=== PATIENT | male | born 1955 | race Caucasian/White ===

== ENCOUNTER 2018-12-20 18:14 | Emergency (ER) | payer BC ==
[2018-12-20] MEDS ORDERED: methylPREDNISolone Sodium Succinate 125 MG/2 ML SDV IM SCH (18:30)
--- NOTE | 2018-12-20 18:53 | EDM.PDOC ---
ED HPI GENERAL MEDICAL PROBLEM - General Chief Complaint: Allergic Reaction Stated Complaint: "Got stung by a bee" Time Seen by Provider: 12/20/18 18:18 Source of Information: Reports: Patient History Limitations: Reports: No Limitations - History of Present Illness INITIAL COMMENTS - FREE TEXT/NARRATIVE: Eloisa is a 63 yo male who presents to the ED with concerns of a bee sting. 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 States he knows he is allergic to them and does have an EpiPen for it. States he unloaded his truck which took about 15 minutes then was able to get his EpiPen and use it. States he immediately grabbed the bee and doesn't think there is any retained stinger in his right ear lob. Denies having any shortness of breath. States he does have some swelling to the ear lobe and did feel itchy on his arms afterwards. States this has happened twice in the past and he would come in and get a shot and never had any further symptoms afterwards. Onset: Today Onset Date: 12/20/18 Onset Time: 17:05 Duration: Improving Quality: Reports: Same as Previous Episode Past Medical History Cardiovascular History: Reports: CAD, High Cholesterol, Hypertension Social & Family History - Tobacco Use Smoking Status *Q: Never Smoker - Alcohol Use Alcohol Use History: Yes Alcohol Use Frequency: Socially - Recreational Drug Use Recreational Drug Use: No - Sexual History Sexual History: Reports: Single Partner - Living Situation & Occupation Living situation: Reports: , with Spouse Occupation: Employed ED ROS ALLERGIC REACTION - Review of Systems Review Of Systems: See Below Constitutional: Reports: No Symptoms HEENT: Reports: Ear Pain. Denies: Throat Swelling Respiratory: Denies: Shortness of Breath, Wheezing Cardiovascular: Reports: Blood Pressure Problem. Denies: Chest Pain, Lightheadedness, Palpitations Skin: Reports: Pruritis. Denies: Urticaria Neurological: Reports: No Symptoms Psychiatric: Reports: No Symptoms ED EXAM GENERAL NO PERIP PULSE - Physical Exam Exam: See Below Exam Limited By: No Limitations General Appearance: Alert, WD/WN, No Apparent Distress Eye Exam: Bilateral Eye: Normal Inspection Ears: Hearing Loss, Other (mild swelling to right ear lobe, no visual stinger noted. ) Nose: Normal Inspection, Normal Mucosa Throat/Mouth: Normal Inspection, Normal Lips, Normal Gums, Normal Oropharynx, Normal Voice, No Airway Compromise Head: Atraumatic, Normocephalic Neck: Normal Inspection, Supple, Non-Tender Respiratory/Chest: No Respiratory Distress, Lungs Clear, Normal Breath Sounds, No Accessory Muscle Use Cardiovascular: Regular Rate, Rhythm, No Murmur Extremities: Normal Inspection Neurological: Alert, Oriented, Normal Cognition, No Motor/Sensory Deficits Psychiatric: Normal Affect, Normal Mood Skin Exam: Warm, Dry, Intact, Normal Color, No Rash Course - Orders/Labs/Meds Orders: Active Orders 24 hr Category Date Time Status methylPREDNISolone Sod Succ [Solu-MEDROL] Med 12/20/18 18:30 Active 125 mg IM Q12H Medication Orders Methylprednisolone Sodium Succinate (Solu-Medrol) 125 mg IM Q12H JUVENTINO Last Admin: 12/20/18 18:15 Dose: 125 mg Meds: Medications Generic Name Dose Route Start Last Admin Trade Name Freq PRN Reason Stop Dose Admin Methylprednisolone Sodium Succinate 125 mg 12/20/18 18:30 12/20/18 18:15 Solu-Medrol IM 125 mg Q12H JUVENTINO Administration Departure - Departure Time of Disposition: 18:55 Disposition: Home, Self-Care 01 Clinical Impression: Bee sting reaction Qualifiers: Encounter type: initial encounter Injury intent: accidental or unintentional Qualified Code(s): T63.441A - Toxic effect of venom of bees, accidental ( unintentional), initial encounter - Discharge Information Instructions: Bee, Wasp, or Hornet Sting, Adult Additional Instructions: 1) Steroid injection given today in emergency room 2) Continue to carry EpiPen with you at all times 3) Will refill EpiPen tomorrow morning at pharmacy. 4) May take Benadryl for any itchiness, dose instructions on bottle 5) If any further swelling, difficulty breathing, chest pain or any concerns at all, return to ED immediately 6) Discussed using EpiPen if needed again. - Problem List & Annotations (1) Bee sting reaction SNOMED Code(s): 455838780, 424817802 Code(s): T63.441A - TOXIC EFFECT OF VENOM OF BEES, ACCIDENTAL, INIT Status : Acute Qualifiers: Encounter type: initial encounter Injury intent: accidental or unintentional Qualified Code(s): T63.441A - Toxic effect of venom of bees, accidental (unintentional), initial encounter - My Orders Last 24 Hours: My Active Orders 12/20/18 18:30 methylPREDNISolone Sod Succ [Solu-MEDROL] 125 mg IM Q12H - Assessment/Plan Last 24 Hours: My Active Orders 12/20/18 18:30 methylPREDNISolone Sod Succ [Solu-MEDROL] 125 mg IM Q12H Plan: Pat has been stable in the ED. No sign of anaphylaxis noted. We did monitor him to confirm no further reactions. Will discharge at this time. Patient did receive 125mg of SoluMedrol. Further instructions given. Signs and symptoms to monitor for discussed into detail. Vital signs were stable. Please see nurses note for complete past medical history and vital signs.
== END 2018-12-20 19:30 | disposition home or self-care (01) ==
LOC: CC.ED 18:14
DX: T63.441A Toxic effect of venom of bees, accidental (unintentional), initial encounter (principal)
CPT/HCPCS: 96372; 99283; J2930